=== PATIENT | female | born 2005 | race Caucasian/White ===

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

== ENCOUNTER 2024-01-05 22:35 | Observation (INO) ==
--- OUTSIDE RECORDS SUMMARY | 2024-01-05 22:40 | External Medical Summary | Summary of Care ---
Author Name Unknown Organization [facility] Address [address] [place] [address] Phone [phone] Care Team Providers Care J2Ee Engineer Name Role Phone Dasha Dinero MD Primary Care Provider + Reason for Visit * - Authorized Specialty Diagnoses / Procedures Referred By Juanjo andres Referred To Contact Referral ID Status Reason Start Date Expiration Date V isits Requested Visits Authorized [id number] Authorized 11/18/2023 11/16/2024 [id number] Encounter Details Date Type Department Care Team (Late st Contact Info) Description 12/05/2023 8:00 AM EDT Telemedicine Psychiatry [facility] [address] [place] [address] Lisa Whitt MD [address] [place] [address] Intermittent explosive disorder in adult*; Autism spectrum disorder Allergies Active Allergy Reactions Criticality Noted Date Comments Pollen 01/23/2022 Reported by mom documented as of this encounter (statuses as of 12/05/2023) Medications Medication Sig Dispensed Refills Start Date End Date Status Levonorgestrel-Eth inyl Estrad 0.1-20 MG-MCG Oral Tablet Take 1 Tablet by mouth in the morning. Active metFORMIN HCl 500 MG Oral Tablet (Glucophage)Indica tions:terminal block assembler current use of antipsychotic medication TAKE 1 TABLET BY MOUTH TWICE DAILY WITH MORNING AND EVENING MEALS 180 Tablet 4 Active clonazePAM 0.5 MG Oral Tablet (KlonoPIN)Indicati ons:TRISTA (generalized anxiety disorder) Take 1 Tablet by mouth in the morning and 1 Tablet before bedtime. 60 Tablet 1 4 Active busPIRone HCl 10 MG Oral Tablet (Buspar)Indication s:TRISTA (generalized anxiety disorder) Take 1 Tablet by mouth in the morning and 1 Tablet at noon and 1 Tablet before bedtime. 90 Tablet 1 4 Active risperiDONE 0.5 MG Oral Tablet (RisperDAL)Indicat ions:Autism spectrum disorder Take 1 Tablet by mouth at bedtime. 4 Active Sertraline HCl 50 MG Oral Tablet (Zoloft)Indication s:Intermittent explosive disorder in adult Take 1 Tablet by mouth in the morning. In the morning.. 30 Tablet 2 4 Active lamoTRIgine 100 MG Oral Tablet (LaMICtal) Take 1 Tablet by mouth daily for 14 days, THEN 1.5 Tablets daily for 14 days. 35 Tablet 4 01/02/20 24 Active Melatonin 5 MG Tablet Take 1 Capsule by mouth at bedtime. 12/05/19 24 Discontinued hydrOXYzine Pamoate 25 MG Oral Capsule (Vistaril) TAKE 1 CAPSULE BY MOUTH THREE TIMES DAILY EVERY MORNING, AT NOON, AND BEFORE BEDTIME 270 Capsule 3 12/05/19 24 Discontinued risperiDONE 0.5 MG Oral Tablet (RisperDAL)Indicat ions:Autism spectrum disorder Take 1 Tablet by mouth every afternoon AND 1 Tablet at bedtime. 60 Tablet 1 4 12/05/19 24 Discontinued Sertraline HCl 50 MG Oral Tablet (Zoloft)Indication s:TRISTA (generalized anxiety disorder) Take 1 Tablet by mouth in the morning. In the morning.. 30 Tablet 2 4 12/05/19 24 Discontinued(Ref ill) lamoTRIgine 25 MG Oral Tablet (LaMICtal)Indicati ons:Intermittent explosive disorder Take 3 Tablets by mouth in the morning. 4 12/05/19 24 Discontinued cloNIDine HCl 0.1 MG Oral Tablet (Catapres) Take 1 Tablet by mouth in the morning and 1 Tablet before bedtime. 12/05/19 24 Discontinued documented as of this encounter (statuses as of 12/05/2023) Active Problems Problem Noted Date Diagnosed Date Mild intellectual disability 12/09/2019 Autism spectrum disorder 11/19/2017 Intermittent explosive disorder 11/19/2017 Otitis media Dysfunction of eustachian tube Hearing loss documented as of this encounter (statuses as of 12/05/2023) Resolved Problems Problem Noted Date Diagnosed Date Resolved Date Otitis media 04/16/2007 Dysfunction of eustachian tube 06/24/2008 Overview: Resolved per Duplicate Protocol #2. documented as of this encounter (statuses as of 12/05/2023) Social History Tobacco Use Types Packs/Day Years [...] money to get more. Never true 04/23/2023 Childcare Answer Date Recorded Do you feel overwhelmed with taking care of a child, family member or friend? No 04/23/2023 Does your family need help f inding childcare? (Household - for ages 0-17 years) Not on file 04/23/2023 Clothing Answer Date Recorded Have you been unable to get clothing when it was really needed? No 04/23/2023 Is your family able to get c lothes or diapers when needed? (Household - for ages 0-17 years) Not on file 04/23/2023 Personal Safety Answer Date Recorded Do you feel unsafe or have concerns for your saf ety? No 04/23/2023 Do you have concerns for you r family's safety? (Household - for ages 0-17 years) Not on file 04/23/2023 Utilities Answer Date Recorded Do you have trouble paying y our heating, water, or electric bill? No 04/23/2023 Is your family able to pay t he heat, water, or electric bill? (Household - for ages 0-17 years) Not on file 04/23/2023 Does your family have access to good internet? (Household - for ages 0-17 years) Not on file 04/23/2023 Employment Status Answer Date Recorded Are you unemployed or without regular income? No 04/23/2023 Does the household have a re gular source of income? (Household - for ages 0-17 years) Not on file 04/23/2023 Social Connections Answer Date Recorded How often do you feel lonely or isolated from th ose around you? Often 04/23/2023 Financial Resource Strain Answer Date R ecorded Do you have any trouble payi ng for your medications, or do you think you might in the future? No 04/23/2023 Does your family have troubl e paying for medicine? (Household - for ages 0-17 years) Not on file 04/23/2023 Transportation Needs Answer Date Record ed READ ONLY Do you have troubl e getting a ride to medical visits or work? Never True 04/23/2023 Does your family have a hard time getting a ride to doctors visits? (Household - for ages 0-17 years) Not on file 04/23/2023 Has lack of transportation k ept you from medical appointments, meetings, work, or from getting things needed for daily living? Check all that apply. (Adult - for ages 18 years and over) Not on file 04/23/2023 Do you (or your family) have trouble finding or paying for a ride (transportation)? (Household - for ages 0-17 years) Not on file 04/23/2023 Housing Stability Answer Date Recorded Do you currently live in a s helter or have no steady place to sleep at night? No 04/23/2023 READ ONLY Do you think you a re at risk of becoming homeless? No 04/23/2023 Does your family worry about paying for your home or becoming homeless? (Household - for ages 0-17 years) Not on file 1 06/24/2022 Are you homeless or worried that you might be in the future? (Adult - for ages 18 years and over) Not on file Are you (or your family) art eless or worried that you might be in the future? (Household - for ages 0-17 years) Not on file Food Insecurity Answer Date Recorded Do you need food for this week? No 04/23/2023 Are you able to get enough f ood for your family? (Household - for ages 0-17 years) Not on file 04/23/2023 Does your family need food t his week? (Household - for ages 0-17 years) Not on file 04/23/2023 Do you always have enough fo od for your family? (Household - for ages 0-17 years) Not on file 04/23/2023 Sex and Gender Information Value Date Recorded Sex Assigned at Female 04/23/2023 1:11 PM EST Gender Identity Female 04/23/2023 1:11 PM EST Sexual Orientation Choose not to disclose 2022 1:11 PM EST Job Start Date Occupation Industry Not on file Not on file Not on file documented as of this encounter Patient Instructions * Patient Instructions* Lisa Whitt MD - 12/05/2023 9:02 AM EDT Isabell August it was a pleasure to see you today. Prior to your next appointment: I recommend reading as much as you can about your psychiatric illness. I find that this website is a good place to start: [email or web address]. Make a list of questions as you go along, and we can go over them at your next appointment. Please read all of the attachments about your medication, and take your medication as prescribed. If you are very sensitive to medications, it can be helpful to keep a daily log of how you are feeling both physically and mentally so we can review it and look for patterns at our next visit together. For appointment scheduling, medication refills or prior-authorization requests, please call the [facility] Psychiatry office at [phone]. Please note that to best serve all of our patients, any patient missing 4 appointments within a 12 month period will be discharged from the clinic. Please log in to the visit 15 minutes prior to yourscheduled appointment time. Patients who present more than 10 minutes late to an appointment will be asked to reschedule. If you are in a crisis, you can call the crisis intervention hotline (TAPLINE) , or call 911 or present to the nearest emergency room. documented in this encounter Progress Notes * Lisa Whitt MD - 12/05/2023 8:00 AM EDT OUTPATIENT BEHAVIORAL HEALTH FOLLOW UP Patient location: HOME. I was not in a hospital or clinic location. After connecting through televideo, patient was verified with two unique identifiers. Patient (or authorized legal medical billing representative) was then informed that this was a Telemedicine visit and being conducted confidentially over secure lines. Methods to assure confidentiality were taken. Patient acknowledged consent and understanding of privacy and security of the Telemedicine visit. The patient agreed to participate. Risk Assessment: Subjective: Previously treated in this clinic by Erna Burris. Diagnosis of ASD. TRISTA, hx of intermittent explosive disorder, mild intellectual disability. Last seen 09/25/23. Participating in Psych Rehab. Psychiatric history notable for treatment since teenage years for emotion dysregulation, behavioral issues, sleep disruption. Psychiatric admission June 2023 for an attempt to run into traffic, and two prior hospitalizations in 2022. Hx of NSSI (hitting self, stab self with pencil) Hx of overdose attempt on benadryl, jumping out a window. History of chronic passive and active SI. History of suicidalstatements in the context of low distress tolerance, without intent. No hx of substance use. No legal or trauma hx. No known contributing family hx. Medication at last visit was klonopin 0.5mg BID, Risperidone 0.5mg BID (plan to taper or switch to rexulti), hydroxyzine 25mg PRN, buspar 10mg TID, melatonin 10mg hs, zoloft 50mg daily, lamictal 75mg daily. Labs were ordered. 23 y.o. female presents with h/o multiple psychiatric hospitalizations this year for suicidal ideation and "meltdowns". Most recent hospitalization in October after running away from social event and standing in road hoping to be hit by car. She says she became upset when someone she liked was talkingto another girl. She says She ran off from the social event and taken in an ambulance to the [facility]; "I was laying on the ground so people would think I was and would be worried about me, I wanted them to feel bad for me" and denies any desire to end life during this episode. Due to this behavior she was taken in ambulance to the hospital and admitted to the [facility]. Denies current SI but endorses ongoing struggles with rejection sensitivity, low self-esteem, and emotional dysregulation. Reports feeling "really lonely" and that "guys don't pay attention to me". Went to camp last week but had a "meltdown". Fixated on weight and appearance. Denies changes to SocHx. Lives with parents. Attends psych rehab program weekly and sees therapist at [place]. Reports missing last week's session due to camp. Going to camp, spending time with family. Graduated HS. "Not sure about goals" would like to "be a dumont, or dance". Lives with parents. Goes to Psych rehab in [place] ; every Saturday 8am-3pm.Seeing a therapist at [place]-says this is a good relationship. Weight 145 in 2021, now 181 No questionnaires available. Prior Medication Trials: Abilify- weight gain (50lb) Guanfacine Vyvanse- irritability Adderall XR- weight loss Metadate- emotional crying Focalin- low dose- not effective Zoloft: reduced intermittent explosive behaviors Klonopin: 0.5mg BID , started during a hospitalization Risperdal: started during a psychiatric hospitalization . Had been up to 1mg 4pm and 0.5mg hs Buspar 10mg: had been 15mg TID. Had been tapering off of this but she started having more problems so it was restarted Lamotrigine: started during a hospital stay; family reports this did decrease frequency of 'violenteruptions' Clonidine: started October 2023 during a hospitalization, unsure if helpful as patient did have several explosive episodes subsequently Hydroxyzine: initially thought to be helpful as it appeared calming during explosive events, however possibly disinhibiting as administering this during an outburst did not prevent a need fo rhospitalization Medical History: I have reviewed the patient's allergies, past medical/surgical history, and current medications. Recent labs/imaging: Relevant labs reviewed er Dr. Gerald Ryan, asphalt tamper regarding MRI performed on 05-01-23: Cardiac MRI does not show signs of dilated cardiomyopathy. 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 This is calculated about 40% (normal 50-74%). 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 Since she has no symptoms at this point, these findings need to be monitored periodically. I would recommend follow up with adult cardiology in 1 year for repeat evaluation. Mental Status Evaluation: Appearance: Well groomed, casually dressed, appearing stated age Abnormal Movement: No abnormal movements noted Behavior: Calm, cooperative and appropriate. Poor eye contact Speech and Language: Normal in rate, rhythm, volume and tone Mood: Euthymic Affect: Appropriate to content and mood-congruent Thought Process: Logical, linear and goal directed Thought Content: No abnormal thought content Hallucinations: No perceptual disturbances Suicidality: No suicidal ideations, intent, method or plan or passive wish Homicidality: No homicidal ideations, intent, plan or target Orientation: Oriented to self, time, place and circumstances Attention: Intact Recent and Remote memory:Intact Insight: fair Judgement: fair Fund of Knowledge: Good Assessment/Formulation: 18 y.o. female with Diagnosis of ASD. TRISTA, hx of intermittent explosive disorder, mild intellectualdisability. presenting with ongoing mood lability, rejection sensitivity, and self-esteem issues leading to multiple psychiatric hospitalizations in the past year for statements of SI and emotional outbursts. Currently not endorsing acute SI/HI or psychosis. Struggling with weight gain on current meds. Medication adjustments warranted to optimize mood stability while minimizing side effects. Psychiatric history notable for treatment since teenage years for emotion dysregulation, behavioral issues, sleep disruption. Psychiatric admission June 2023 for an attempt to run into traffic, and two prior hospitalizations in 2022. Hx of NSSI (hitting self, stab self with pencil) Hx of overdose attempt on benadryl, jumping out a window. History of chronic passive and active SI. History of suicidal statements in the context of low distress tolerance, without intent. No hx of substance use. No legal or trauma hx. No known contributing family hx. Diagnosis: ICD-10-CM 1. Autism spectrum disorder F84.0 2. TRISTA (generalized anxiety disorder) F41.1 Plan: Plan: 1. Medications - Discontinue clonidine (limited benefit, possible worsening of outbursts). We may reconsider in the future but have discussed family and patient goal of reducing polypharmacy - Decrease risperidone to 0.5mg HS (continue 0.5mg PRN for severe agitation) - Increase lamotrigine to 100mg x2 weeks, then 150mg x2 weeks (goal 200-400mg) - Continue current doses of sertraline and buspirone with plan to consolidate to monotherapy in future - Continue clonazepam 0.5mg BID. We may also revisit tapering this in the future once lamotrigine dose is optimized, as this may be disinhibiting - Continue metformin and OCP 2. Therapy - Encourage regular attendance at weekly psych rehab program - Follow up with therapist at [facility] 3. Community resources - Explore local peer support groups and social activities 4. Lab tests: - Check HbA1c and lipids - Consider checking lamotrigine level once on a therapeutic dose 5. "Safety plan: Benigno rivas safety plan attached" 6. Return in: 2 weeks for med check and re-evaluation. Call sooner if worsening in mood or self-harm urges. Information about current meds reviewed/provided /offered. Provider reviewed risks/benefits/side effects and potential complications. Recommended to not change meds/dosage without medical advise.Treatment options and recommendations/interventions reviewed. Patient and/or caregiver verbalize understanding and agrees to plan with explanation of risks/benefits, aware of how to contact clinic with questions. Time Spent on Visit: 30 minutes Please note >17 minutes of counseling time over and above medication management was spent with patient discussing safety and contingency plan . Lisa Whitt MD Adult Psychiatrist [facility] [phone] 12/04/23 documented in this encounter Plan of Treatment Upcoming Encounters Date Type Department Care Team (Late st Contact Info) Description 12/26/2023 1:00 PM EDT Telemedicine Psychiatry [facility] [address] [place] [place] [address] Lisa Whitt MD [address] [facility] [place] [address] Health Maintenance Due Date Last Done Comments Yearly Wellness Visit 2008 Depression Screening 2016 Gonorrhea / Chlamydia Screen 2019 HIV Screening 2019 Hepatitis C Screening 2022 COVID-19 Vaccine ( season) 2023 Influenza Vaccine (FLU shot) (#1) 2024 03/03/2018, 05/28/2014, 04/26/2005 DTaP,Tdap,and Td Vaccines (7 - Td or Tdap) 08/17/2025 08/18/2015, 12/09/2008, 10/02/2005, Additional history exists Hepatitis B Vaccine Completed 04/26/2005, 2004, 2004 HPV (Gardasil) Vaccine Completed 03/03/2018, 2015 MENINGOCOCCAL (MENACTRA/MENVEO) Aged Out No longer eligible based on patient's age to complete this topic Pneumococcal Vaccine: Pediatrics (0 to 5 Years) and At-Risk Patients (6 to 64 Years) Aged Out No longer eligible based on patient's age to complete this topic documented as of this encounter Medical Devices Not on filedocumented as of this encounter Visit Diagnoses Diagnosis Intermittent explosive disorder in adult- Primary Autism spectrum disorder Autistic disorder, current or active state documented in this encounter Care Teams J2Ee Engineer Relationship Specialty Start Date End Date Dasha Dinero MD [address] [address] PCP - General Pediatrics 02/20/17 documented as of this encounter
--- OUTSIDE RECORDS SUMMARY | 2024-01-05 22:40 | External Medical Summary | Summary of Care ---
Author Name Unknown Organization [facility] Address [address] [place] [place] [address] Phone [phone] Care Team Providers Care Mailing Clerk Name Role Phone Dsaha Dinero MD Primary Care Provider + Reason for Visit * Reason Onset Date Comments Med Request 12/06/2023 Encounter Details Date Type Department Care Team (Late st Contact Info) Description 12/06/2023 Telephone Access Center, [place] [address] [facility] *DO NOT REMOVE THIS DEPARTMENT* [place] [address] Services, Scheduling [address] [facility] [place] [place] [address] Med Request Allergies Active Allergy Reactions Criticality Noted Date Comments Pollen 01/23/2022 Reported by mom documented as of this encounter (statuses as of 12/06/2023) Medications Medication Sig Dispensed Refills Start Date End Date Status Levonorgestrel-Ethi nyl Estrad 0.1-20 MG-MCG Oral Tablet Take 1 Tablet by mouth in the morning. Active metFORMIN HCl 500 MG Oral Tablet (Glucophage)Indicat ions:[facility] current use of antipsychotic medication TAKE 1 TABLET BY MOUTH TWICE DAILY WITH MORNING AND EVENING MEALS 180 Tablet 05/28/2023 Active busPIRone HCl 10 MG Oral Tablet (Buspar)Indications :TRISTA (generalized anxiety disorder) Take 1 Tablet by mouth in the morning and 1 Tablet at noon and 1 Tablet before bedtime. 90 Tablet 1 10/24/2023 Active risperiDONE 0.5 MG Oral Tablet (RisperDAL)Indicati ons:Autism spectrum disorder Take 1 Tablet by mouth at bedtime. 12/05/2023 Active Sertraline HCl 50 MG Oral Tablet (Zoloft)Indications :Intermittent explosive disorder in adult Take 1 Tablet by mouth in the morning. In the morning.. 30 Tablet 2 12/05/2023 Active lamoTRIgine 100 MG Oral Tablet (LaMICtal) Take 1 Tablet by mouth daily for 14 days, THEN 1.5 Tablets daily for 14 days. 35 Tablet 12/05/2023 01/02/2024 Active clonazePAM 0.5 MG Oral Tablet (KlonoPIN)Indicatio ns:TRISTA (generalized anxiety disorder) Take 1 Tablet by mouth in the morning and 1 Tablet before bedtime. 60 Tablet 1 12/06/2023 Active clonazePAM 0.5 MG Oral Tablet (KlonoPIN)Indicatio ns:TRISTA (generalized anxiety disorder) Take 1 Tablet by mouth in the morning and 1 Tablet before bedtime. 60 Tablet 1 08/28/2023 12/06/2023 Discontinue d(Refill) documented as of this encounter (statuses as of 12/06/2023) Active Problems Problem Noted Date Diagnosed Date Mild intellectual disability 12/09/2019 Autism spectrum disorder 11/19/2017 Intermittent explosive disorder 11/19/2017 Otitis media Dysfunction of eustachian tube Hearing loss documented as of this encounter (statuses as of 12/06/2023) Resolved Problems Problem Noted Date Diagnosed Date Resolved Date Otitis media 04/16/2007 Dysfunction of eustachian tube 06/24/2008 Overview: Resolved per Duplicate Protocol #2. documented as of this encounter (statuses as of 12/06/2023) Social History Tobacco Use Types Packs/Day Years [...] No 04/23/2023 Does the household have a [facility] source of income? (Household - for ages [...] encounter Miscellaneous Notes * Telephone Encounter - Emma Mukherjee OSA - 12/06/2023 12:43 PM EDT Patient Requesting Refill Prescribing Provider: Jose Eduardo Medication:clonazePAM 0.5 MG Pharmacy:[facility] Last Visit Date:12/05/23 Future Visit Date:12/26/23 Pt is out of her medication. Mom forgot to get a refill yesterday when she had the appointment. documented in this encounter Plan of Treatment Upcoming Encounters Date Type Department Care Team (Late st Contact Info) Description 12/26/2023 1:00 PM EDT Telemedicine Psychiatry [facility] [address] [place] [address] Lisa Whitt MD [address] [facility] [place] [address] Health Maintenance Due [...] disorder documented in this encounter Care Teams Mailing Clerk Relationship Specialty Start Date End Date Dasha Dinero MD [address] [address] PCP - General Pediatrics 02/20/17 documented as of this encounter
--- OUTSIDE RECORDS SUMMARY | 2024-01-05 22:40 | External Medical Summary | Summary of Care ---
Author Name Unknown Organization [facility] Address [address] [place] [facility] [place] [place] [address] Phone [phone] Care Team Providers Care Nursing Unit Manager Name Role Phone Dasha Dinero MD Primary Care Provider + Reason for Visit * Reason Onset Date Comments Med Request 12/06/2023 Encounter Details Date Type Department Care Team (Late st Contact Info) Description 12/06/2023 Telephone Access Center, [place] [address] [facility] *DO NOT REMOVE THIS DEPARTMENT* [place] [address] Services, Scheduling [address] [facility] [place] [address] Med Request Allergies Active Allergy Reactions Criticality Noted Date Comments Pollen 01/23/2022 Reported by mom documented as of this encounter (statuses as of 12/09/2023) Medications Medication Sig Dispensed Refills Start Date End Date Status Levonorgestrel-Ethi nyl Estrad 0.1-20 MG-MCG Oral Tablet Take 1 Tablet by mouth in the morning. 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 documented as of this encounter (statuses as of 12/09/2023) Social History Tobacco Use Types Packs/Day Years [...] No 04/23/2023 Does the household have a [facility] source of income? (Household - for ages [...] encounter Miscellaneous Notes * Telephone Encounter - Edith Rossi OSA - 12/09/2023 4:23 PM EDT Patients mom calling back in and Sara has not received the prescription. Can we please have this resent phyllis * Telephone Encounter - Emma Mukherjee OSA - 12/06/2023 12:43 PM EDT Patient Requesting Refill Prescribing Provider: Jose Eduardo Medication:clonazePAM 0.5 MG Pharmacy:[facility] Last Visit Date:12/05/23 Future Visit Date:12/26/23 Pt is out of her medication. Mom forgot to get a refill yesterday when she had the appointment. documented in this encounter Plan of Treatment Upcoming Encounters Date Type Department Care Team (Late st Contact Info) Description 12/26/2023 1:00 PM EDT Telemedicine Psychiatry Shakir [facility]ote [address] [place] [address] Lisa Whitt MD [address] [facility] [place] [address] Health Maintenance Due Date Last Done [...] disorder documented in this encounter Care Teams Nursing Unit Manager Relationship Specialty Start Date End Date Dasha Dinero MD [address] [address] PCP - General Pediatrics 02/20/17 documented as of this encounter
--- OUTSIDE RECORDS SUMMARY | 2024-01-05 22:40 | External Medical Summary | Summary of Care ---
Author Name Unknown Organization [facility] Address [address] [facility] [place] [address] Phone [phone] Care Team Providers Care Teacher Preschool Name Role Phone Dasha Dinero MD Primary Care Provider + Reason for Visit * Reason Onset Date Comments Med Request 12/06/2023 Encounter Details Date Type Department Care Team (Late st Contact Info) Description 12/06/2023 Telephone Access Center, [place] [address] [facility] *DO NOT REMOVE THIS DEPARTMENT* [place] [address] Services, Scheduling [address] [facility] [place] [address] Med Request Allergies Active Allergy Reactions Criticality Noted Date Comments Pollen 01/23/2022 Reported by mom documented as of this encounter (statuses as of 12/10/2023) Medications Medication Sig Dispensed Refills Start Date End Date Status Levonorgestrel-Ethi nyl Estrad 0.1-20 MG-MCG Oral Tablet Take 1 Tablet by mouth in the morning. Active metFORMIN HCl 500 MG Oral Tablet (Glucophage)Indicat ions:FPC current use of antipsychotic medication TAKE 1 [...] 1 Tablet before bedtime. 60 Tablet 1 12/10/2023 Active clonazePAM 0.5 MG Oral Tablet (KlonoPIN)Indicatio ns:TRISTA (generalized anxiety disorder) Take 1 Tablet by mouth in the morning and 1 Tablet before bedtime. 60 Tablet 1 08/28/2023 12/06/2023 Discontinue d(Refill) clonazePAM 0.5 MG Oral Tablet (KlonoPIN)Indicatio ns:TRISTA (generalized anxiety disorder) Take 1 Tablet by mouth in the morning and 1 Tablet before bedtime. 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 documented as of this encounter (statuses as of 12/10/2023) Social History Tobacco Use Types Packs/Day Years Used Date Smoking Tobacco: Never Smokeless Tobacco: Never Alcohol Use Standard Drinks/Week Comments No 0 (1 standard drink = 0.6 oz pur e alcohol) Hunger Vital Sign Answer Date Recorded Within the past 12 months, y ou worried that your food would run out before you got the money to buy more. Never true 04/23/20 Within the past 12 months, t he [...] No 04/23/2023 Does the [facility] a [facility] source [facility]? (Household - for ages [...] as of this encounter Miscellaneous Notes * Addendum Note - Lisa Whitt MD - 12/10/2023 8:01 AM EDTAddended by: LISA WHITT on: 12/10/2023 08:01 AM Modules accepted: Orders * Telephone Encounter - Edith Rossi OSA - 12/09/2023 4:23 PM EDT Patients mom calling back in and Sara has not received the prescription. Can we please have this resent phyllis * Telephone Encounter - Emma Mukherjee OSA - 12/06/2023 12:43 PM EDT Patient Requesting Refill Prescribing Provider: Jose Eduardo Medication:clonazePAM 0.5 MG Pharmacy:[facility] Last Visit Date:12/05/23 Future Visit Date:12/26/23 Pt is out of her medication. Mom forgot to get a refill yesterday when she had the appointment. documented in this encounter Plan of Treatment Upcoming Encounters Date Type Department Care Team (Late st Contact Info) Description 12/26/2023 1:00 PM EDT Telemedicine Psychiatry Shakir Cote [address] [place] [phone] Lisa Whitt MD [address] [place] [address] Health Maintenance Due Date Last Done [...] disorder documented in this encounter Care Teams Teacher Preschool Relationship Specialty Start Date End Date Dasha Dinero MD [address] [address] PCP - General Pediatrics 02/20/17 documented as of this encounter
--- OUTSIDE RECORDS SUMMARY | 2024-01-05 22:40 | External Medical Summary | Summary of Care ---
Author Name Unknown Organization [facility] Address [address] [place] [address] Phone [phone] Care Team Providers Care Floor Press Operator Name Role Phone Dasha Dinero MD Primary Care Provider + Reason for Visit * - Authorized Specialty Diagnoses / Procedures Referred By Juanjo andres Referred To Contact Referral ID Status Reason Start Date Expiration Date V isits Requested Visits Authorized [id number] Authorized 11/18/2023 11/16/2024 [id number] Encounter Details Date Type Department Care Team (Late st Contact Info) Description 12/26/2023 1:00 PM EDT [facility] [address] [place] [address] Lisa Whitt MD [address] [place] [address] No Show for psych appt* Allergies Active Allergy Reactions Criticality Noted Date Comments Pollen 01/23/2022 Reported by mom documented as of this encounter (statuses as of 12/26/2023) Medications Medication Sig Dispensed Refills Start Date End Date Status Levonorgestrel-Ethi nyl Estrad 0.1-20 MG-MCG Oral Tablet Take 1 Tablet by mouth in the morning. Active metFORMIN HCl 500 MG Oral Tablet (Glucophage)Indicat ions:terminal gauger supervisor current use of antipsychotic medication TAKE 1 TABLET BY MOUTH TWICE DAILY WITH MORNING AND EVENING MEALS 180 Tablet 05/28/2023 Active busPIRone HCl 10 MG Oral Tablet (Buspar)Indications :TRISTA (generalized anxiety disorder) Take 1 Tablet by mouth in the morning and 1 Tablet at noon and 1 Tablet before bedtime. 90 Tablet 1 10/24/2023 Active Sertraline HCl 50 MG Oral Tablet (Zoloft)Indications :Intermittent explosive disorder in adult Take 1 Tablet by mouth in the morning. In the morning.. 30 Tablet 2 12/05/2023 Active lamoTRIgine 100 MG Oral Tablet (LaMICtal) Take 1 Tablet by mouth daily for 14 days, THEN 1.5 Tablets daily for 14 days. 35 Tablet 12/05/2023 4 Active clonazePAM 0.5 MG Oral Tablet (KlonoPIN)Indicatio ns:TRISTA (generalized anxiety disorder) Take 1 Tablet by mouth in the morning and 1 Tablet before bedtime. 60 Tablet 1 12/12/2023 Active risperiDONE 0.5 MG Oral Tablet (RisperDAL)Indicati ons:Autism spectrum disorder Take 1 Tablet by mouth at bedtime. 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 documented as of this encounter (statuses as of 12/26/2023) Social History Tobacco Use Types Packs/Day Years [...] No 04/23/2023 Does the household have a [facility] source of income? (Household - for ages [...] as of this encounter Progress Notes * Lisa Whitt MD - 12/26/2023 1:12 PM EDT Patient failed to keep appointment. Called home; mom answered and stated patient was sleeping and not willing to participate in visit Mom reported pt has stopped risperidone and clonidine. Showing improvement in mood and emotion regulation. Has been sleeping often and has disrupted sleep cycle. Does sleep better on days attends psych rehab. No acute safety concerns. Our office will reach out to help them reschedule. Ideally 60 min appointment if this is available within next 3 weeks. documented in this encounter Plan of Treatment Upcoming Encounters Date Type Department Care Team (Late st Contact Info) Description 01/22/2024 2:30 PM EDT Telemedicine Psychiatry [facility] [address] [address] [phone] Lisa Whitt MD [address] [facility] [place] [address] Health Maintenance Due Date Last Done Comments [...] as of this encounter Visit Diagnoses Diagnosis No Show for psych appt- Primary documented in this encounter Care Teams Floor Press Operator Relationship Specialty Start Date End Date Dasha Dinero MD [address] [address] PCP - General Pediatrics 02/20/17 documented as of this encounter
--- OUTSIDE RECORDS SUMMARY | 2024-01-05 22:40 | External Medical Summary | Summary of Care ---
Author Name Unknown Organization [facility] Address [address] [place] [address] Phone [phone] Care Team Providers Care Nurse Discharge Name Role Phone Dasha Dinero MD Primary Care Provider + Reason for Visit * Reason Onset Date Comments Med Request 11/27/2023 Encounter Details Date Type Department Care Team (Late st Contact Info) Description 11/27/2023 Telephone Psychiatry, [place] [address] [place], [place] [id number] Services, [facility] [address] [place] [address] Med Request Allergies Active Allergy Reactions Criticality Noted Date Comments Pollen 01/23/2022 Reported by mom documented as of this encounter (statuses as of 11/28/2023) Medications Medication Sig Dispensed Refills Start Date [...] metFORMIN HCl 500 MG Oral Tablet (Glucophage)Indicati ons:FPC current use of antipsychotic medication TAKE 1 [...] before bedtime. 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 documented as of this encounter (statuses as of 11/28/2023) Social History Tobacco Use Types Packs/Day Years [...] 04/23/2023 Does the household have a [facility] source of income? (Household - for ages [...] encounter Miscellaneous Notes * Telephone Encounter - Lexi Fitzgerald OSA - 11/27/2023 1:43 PM EDT Patient Requesting Refill Prescribing Provider:Dr. Whitt Medication:Risperidone 0.5 mg. [facility]acy[facility] Last Visit Date:09/25/23 Future Visit Date:12/05/23 documented in this encounter Plan of Treatment Upcoming Encounters Date Type Department Care Team (Late st Contact Info) Description 12/05/2023 8:00 AM EDT Telemedicine Psychiatry Shakir [address] [address] Lisa Whitt MD [address] [place] [facility] [place] [address] Health Maintenance Due Date Last Done Comments Yearly Wellness Visit 2008 Depression Screening 2016 Gonorrhea / Chlamydia Screen 2019 HIV Screening 2019 Hepatitis C Screening 2022 COVID-19 Vaccine (2022-24 season) 2023 Influenza Vaccine (FLU shot) (#1) [...] filedocumented as of this encounter Care Teams Nurse Discharge Relationship Specialty Start Date End Date Dasha Dinero MD [address] [address] PCP - General Pediatrics 02/20/17 documented as of this encounter
--- OUTSIDE RECORDS SUMMARY | 2024-01-05 22:40 | External Medical Summary | Summary of Care ---
Author Name Unknown Organization [facility] Address [address] [place] [address] Phone [phone] Care Team Providers Care Instructor Flying Name Role Phone Dasha Dinero MD Primary Care Provider + Reason for Visit * Reason Onset Date Comments Medication Refill 12/30/2023 Encounter Details Date Type Department Care Team (Late st Contact Info) Description 12/30/2023 Refill Psychiatry [facility] [place] [address] [place] [address] Malou Whitt MD [address] [place] [address] TRISTA (generalized anxiety disorder) Allergies Active Allergy Reactions Criticality Noted Date Comments Pollen 01/23/2022 Reported by mom documented as of this encounter (statuses as of 12/31/2023) Medications Medication Sig Dispensed Refills Start Date End Date Status Levonorgestrel-Ethi nyl Estrad 0.1-20 MG-MCG Oral Tablet Take 1 Tablet by mouth in the morning. Active metFORMIN HCl 500 MG Oral Tablet (Glucophage)Indicat ions:buttermilk drier operator current use of antipsychotic medication TAKE 1 TABLET BY MOUTH TWICE DAILY WITH MORNING AND EVENING MEALS 180 Tablet 05/28/2023 Active Sertraline HCl 50 MG Oral Tablet (Zoloft)Indications :Intermittent explosive disorder in adult Take 1 Tablet by mouth in the morning. In the morning.. 30 Tablet 2 12/05/2023 Active clonazePAM 0.5 MG Oral Tablet (KlonoPIN)Indicatio ns:TRISTA (generalized anxiety disorder) Take 1 Tablet by mouth in the morning and 1 Tablet before bedtime. 60 Tablet 1 12/12/2023 Active busPIRone HCl 10 MG Oral Tablet (Buspar)Indications :TRISTA (generalized anxiety disorder) Take 1 Tablet by mouth in the morning and 1 Tablet at noon and 1 Tablet before bedtime. 90 Tablet 1 12/31/2023 Active lamoTRIgine 100 MG Oral Tablet (LaMICtal) Take 1.5 Tablets by mouth in the morning. 45 Tablet 1 12/31/2023 Active busPIRone HCl 10 MG Oral Tablet (Buspar)Indications :TRISTA (generalized anxiety disorder) Take 1 Tablet by mouth in the morning and 1 Tablet at noon and 1 Tablet before bedtime. 90 Tablet 1 10/24/2023 12/30/2023 Discontinue d(Refill) lamoTRIgine 100 MG Oral Tablet (LaMICtal) Take 1 Tablet by mouth daily for 14 days, THEN 1.5 Tablets daily for 14 days. 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 documented as of this encounter (statuses as of 12/31/2023) Social History Tobacco Use Types Packs/Day Years [...] No 04/23/2023 [facility] the [facility]? (Household - for ages [...] encounter Miscellaneous Notes * Telephone Encounter - Malou Whitt MD - 12/31/2023 2:52 PM EDTSigned Prescriptions: Disp Refills busPIRone HCl 10 MG Oral Tablet (Buspar) 90 Tab*1 Sig: Take 1 Tablet by mouth in the morning and 1 Tablet at noon and 1 Tablet before bedtime.Authorizing Provider: MALOU WHITT lamoTRIgine 100 MG Oral Tablet (LaMICtal) 45 Tab*1 Sig: Take 1.5 Tablets by mouth in the morning.Authorizing Provider: MALOU WHITT * Telephone Encounter - Mary Gan MD - 12/31/2023 10:34 AM EDT Pending Prescriptions: Disp Refills busPIRone HCl 10 MG Oral Tablet (Buspar) 90 Tab*1 Sig: Take 1 Tablet by mouth in the morning and 1 Tablet at noon and 1 Tablet before bedtime. lamoTRIgine 100 MG Oral Tablet (LaMICtal) 14 Tab*0 Sig: Take 1 Tablet by mouth in the morning for 14 days. * Telephone Encounter - Katrina Rodriguez LPN - 12/30/2023 1:46 PM EDT Pharmacy requesting refill on buspar. Medication was last filled on 10/24/23 with 1 refills. Patient last seen on 12/05/23 with return appointment scheduled for 01/22/24. Patient had 0 cancelled appointments and 1 NO SHOW appointments. documented in this encounter Plan of Treatment Upcoming Encounters Date Type Department Care Team (Late st Contact Info) Description 01/22/2024 2:30 PM EDT Telemedicine Psychiatry Shak[facility] [address] [address] Malou Whitt MD [address] [address] Health Maintenance Due Date Last Done Comments Yearly Wellness Visit 2008 Depression Screening 2016 Gonorrhea / Chlamydia Screen 2019 HIV Screening 2019 Hepatitis C Screening 2022 COVID-19 Vaccine ( - 2022-24 season) 2023 Influenza Vaccine (FLU shot) (#1) [...] disorder documented in this encounter Care Teams Instructor Flying Relationship Specialty Start Date End Date Dasha Dinero MD [address] [address] PCP - General Pediatrics 02/20/17 documented as of this encounter
--- NOTE | 2024-01-05 23:14 | Emergency Department Note ---
Impression & Plan Tylenol ingestion, Suicide attempt, Autism ED Provider Note CHIEF COMPLAINT: Suicide attempt, overdose HISTORY OF PRESENT ILLNESS: This is a 17-year-old female patient past medical history of autism spectrum disorder, intellectual disability, intermittent explosive disorder, obesity presents to the emergency department after a Tylenol ingestion tonight in an effort to kill herself. Patient states she took "a half a bottle" of pain reliever, which is confirmed by mom to be acetaminophen. It is unclear if this is regular strength or extra strength. An exact pill count is unknown as the bottle was open prior to her use. Patient denies any alcohol ingestion. Patient states she has nauseated but has not vomited. She mentions that she has attempted to overdose in the past but "God keeps me alive." She does feel quite frustrated by this. REVIEW OF SYSTEMS: A review of systems was performed with positives and pertinent negatives listed in the history of present illness. 10 systems were reviewed and are otherwise negative. ALLERGIES: see below MEDICATIONS: see below PMH: see below SOCIAL HISTORY: see below DDx: Suicidal ideation, medication ingestion, toxicologic effect, mood disorder, situational stressors, behavioral issue among others. PHYSICAL EXAM: Vital signs reviewed. General: Anxious, tearful 18-year-old female, in no distress. HEENT: No scleral icterus, PERRLA, neck supple. Moist mucous membranes. Cardiovascular: Regular rate and rhythm, no extra sounds. Pulmonary: Clear to auscultation bilaterally, normal work of breathing. Abdomen: Soft, nontender, nondistended, positive bowel sounds. Musculoskeletal: Atraumatic, no peripheral edema. Neurologic: Patient awake alert and oriented x 3, speech is clear Psych: Positive SI, negative HI. Skin: Warm, dry, no rash EMERGENCY DEPARTMENT COURSE/MDM: This patient was evaluated and appeared to be in no significant distress. Patient had 2-3 aggressive outbursts while she was being evaluated by myself and the nursing staff. Patient's medical records were reviewed and it appears that the patient was hospitalized for inpatient psychiatric care in October of this year. She had attempted an overdose at that time as well. Patient did receive 1 L of normal saline solution, but did self discontinue her saline lock in an agitated state. She initially received 0.5 mg of sublingual ativan with brief improvement. Patient then became quite agitated once again. She was given 5 mg of Zyprexa ODT. Laboratory work reveals a 1 hour acetaminophen of 267. If the patient's timing is accurate, this would be a toxic level. Poison control was consulted and has recommended initiation of IV Acetadote. Patient's liver enzymes have remained normal. Her 4-hour acetaminophen level is 439. Patient's case was discussed with Dr. Urias of the hospitalist service to evaluate the patient for admission and further management. Patient is hospitalized on a 302 which has been completed by the delegate. Patient is aware of the plan and agrees. MONITORING: An order for cardiac monitoring was placed and the patient is noted to be in a sinus tachycardia at 101 beats per minute. EKG: To my interpretation reveals a sinus tachycardia at [address] segments. QTc of 450. No PVC, no PAC. DISPOSITION: Admission I have personally spent greater than 50 minutes of critical care time in the direct management of this patient. This includes bedside care, interpretation of diagnostic studies, and testing, discussion with consultants, patient, and family members, and other required patient management activities. This 50 minutes is in excess of all separately billable procedures. Past Med/Surg History Problem List (Updated 01/06/24 @ 12:10 by Mary Talbert MD) Bradycardia Autism (Acute) Suicide attempt (Acute) Intentional overdose Tylenol ingestion (Acute) Obesity (BMI 30-39.9) Intermittent explosive disorder Mood disorder (Acute) Autism spectrum disorder (Acute) ADHD Intellectual disability (Acute) LMNA gene mutation (Acute) Medical History Depression with suicidal ideation Suicide attempt by multiple drug overdose Overdose Suicidal ideation Encounter for prescription of oral contraceptives Depression with suicidal ideation Suicidal behavior with attempted self-injury Diphenhydramine overdose Surgical History No history of previous surgery Family History Unknown Adopted Social History Smoking Status: Never smoker Second Hand Exposure: No; Do You Dip or Chew Tobacco: No; Tobacco Cessation Education Requested by Patient: No Hx Alcohol Use: No Hx Substance Use: No Preferred Language: Frisian Communication Ability: Effective Die Lay Out Worker Required: No Beliefs That Will Affect Care: None Current Living Situation: Family Current Living Situation Comment: Adopted/ parents/ older adopted sister Other Information That Helps Us Care for You: No other: adopted Feels Safe at Home: Yes Safety Concerns: Feels Safe At This Time Childhood Exposure to Second-Hand Smoke: No Gender Identity: Female Assistive Devices: None Allergies Allergies Allergy/AdvReac Type Severity Reaction Status Date / Time No Known Drug Allergies Allergy . Verified 01/06/24 01:04 Home Meds Home Medications Medication Instructions Recorded Confirmed clonazepam 0.5 mg tablet (Klonopin) 0.5 mg PO BID 07/06/23 01/06/24 sertraline 50 mg tablet (Zoloft) 50 mg PO DAILY 07/06/23 01/06/24 lamotrigine 25 mg tablet (Lamictal) 150 mg PO QAM 09/12/23 01/06/24 buspirone 10 mg tablet 10 mg PO TID 10/28/23 01/06/24 buspirone 10 mg tablet 10 mg PO 3XD 01/06/24 01/06/24 levonorgestrel-ethinyl estradiol 1 tab QPM 01/06/24 01/06/24 0.1 mg-20 mcg tablet (Vienva) risperidone 0.5 mg tablet 0.5 mg PO 2XD 01/06/24 01/06/24 Results & Data (ED) Vital Signs Vital Signs - 24 hr 01/06/24 00:21 01/06/24 00:25 01/06/24 00:25 Pulse Rate 102 H Pulse Rate [Right Finger] 96 H Pulse Rate from SpO2 Sensor 100 H Pulse Rhythm [Right Finger] Regular Respiratory Rate 21 16 Blood Pressure 126/95 Blood Pressure [Left Arm] 126/95 Blood Pressure Mean 114 Blood Pressure Mean [Left Arm] 105 Pulse Oximetry 93 96 Oxygen Delivery Method Room Air 01/06/24 00:25 01/06/24 00:25 01/06/24 00:33 Pulse Rate 92 H Pulse Rate [Right Finger] Pulse Rate from SpO2 Sensor 91 H Pulse Rhythm [Right Finger] Respiratory Rate 21 Blood Pressure 126/95 126/95 Blood Pressure [Left Arm] Blood Pressure Mean 114 114 Blood Pressure Mean [Left Arm] Pulse Oximetry 100 Oxygen Delivery Method 01/06/24 00:36 01/06/24 01:00 01/06/24 01:00 Pulse Rate 105 H Pulse Rate [Right Finger] Pulse Rate from SpO2 Sensor 97 H Pulse Rhythm [Right Finger] Respiratory Rate 19 Blood Pressure 139/94 139/94 Blood Pressure [Left Arm] Blood Pressure Mean 99 99 Blood Pressure Mean [Left Arm] Pulse Oximetry 97 Oxygen Delivery Method 01/06/24 01:12 01/06/24 01:30 Pulse Rate 98 H 92 H Pulse Rate [Right Finger] Pulse Rate from SpO2 Sensor 97 H 93 H Pulse Rhythm [Right Finger] Respiratory Rate 22 22 Blood Pressure Blood Pressure [Left Arm] Blood Pressure Mean Blood Pressure Mean [Left Arm] Pulse Oximetry 90 89 L Oxygen Delivery Method Home Medications Current Medication List: was personally reviewed by me Laboratory Data Attestation: I reviewed the patient's lab results. 01/06/24 02:37 01/06/24 20:15 Lab Results 01/05/24 01/05/24 Range/Units 23:05 23:24 WBC 14.48 H (4.8-10.8) K/ul RBC 4.34 (4.20-5.40) M/uL Hgb 12.2 (12.0-16.0) g/dl Hct 38.0 (37.0-47.0) % MCV 87.6 (80.0-100.0) fL MCH 28.1 (25.0-34.0) pg MCHC 32.1 (32.0-36.0) g/dL RDW Std Deviation 39.2 (36.4-46.3) fL RDW Coeff of Tari 12.2 (11.5-14.5) % Plt Count 337 (130-400) K/uL MPV 10.3 (9.4-12.4) fL Immature Gran % (Auto) 0.5 % Neut % (Auto) 58.7 % Lymph % (Auto) 32.2 % [place] % (Auto) 5.9 % Eos % (Auto) 2.1 % Baso % (Auto) 0.6 % Neut # (Auto) 8.50 H (1.40-6.50) K/uL Lymph # (Auto) 4.66 H (1.20-3.40) K/uL [place] # (Auto) 0.85 H (0.11-0.59) K/uL Eos # (Auto) 0.31 (0.00-0.50) K/uL Baso # (Auto) 0.09 (0.00-0.20) K/uL Immature Gran # (Auto) 0.07 (0.01-0.20) K/uL PT 10.1 (9.0-12.0) Seconds INR 0.9 (0.9-1.1) APTT 26 (21-31) Seconds PTT Ratio 1.0 Sodium 137 (136-145) mmol/L Potassium 3.8 (3.5-5.1) mmol/L Chloride 104 (98-107) mmol/L Carbon Dioxide 23 (21-32) mmol/L Anion Gap 10 (3-11) BUN 14 (6-23) mg/dl Creatinine 0.62 (0.6-1.2) mg/dl Est Cr Clr Drug Dosing Not Reportable Est GFR ( Amer) > 150.0 ml/min Est GFR (Non-Af Amer) 130.7 ml/min BUN/Creatinine Ratio 22.6 H (10-20) Glucose 110 H (70-99(Fasting)) mg/dl Calcium 9.6 (8.6-10.3) mg/dl Total Bilirubin 0.2 (0.2-1.0) mg/dl AST 15 (13-39) U/L ALT 17 (7-52) U/L Alkaline Phosphatase 101 (34-104) U/L Total Protein 7.0 (6.0-8.3) gm/dl Albumin 4.3 (3.4-5.0) gm/dl Globulin 2.7 (2.5-4.0) gm/dl Albumin/Globulin Ratio 1.6 (0.9-2) TSH 2.211 (0.300-4.500) uIu/ml Urine Color Yellow Urine Appearance Clear (Clear) Urine pH 5.0 (4.5-7.5) Ur Specific [place] 1.042 H (1.000-1.030) Urine Protein Trace H (Negative) Urine Glucose (UA) Negative (Negative) Urine Ketones Negative (Negative) Urine Blood Negative (Negative) Urine Nitrite Negative (Negative) Urine Bilirubin Negative (Negative) Urine Urobilinogen Negative (Negative) Ur Leukocyte Esterase Negative (Negative) Urine WBC (Auto) 0-5 (0-5) /hpf Urine RBC (Auto) 0-2 (0-2) /hpf U Hyaline Cast (Auto) 0-2 (0-2) /lpf U Epithel Cells (Auto) 3-5 H (0-2) /hpf Urine Bacteria (Auto) 2+ H (None Seen) Salicylates < 3.0 L (3.0-30) mg/dl Urine Opiates Screen Neg (Neg) Ur Methadone, Qual Neg (Neg) Urine Fentanyl Screen Neg (Neg) Acetaminophen 267 H* (10-30) ug/ml Urine Barbiturates Neg (Neg) Ur Phencyclidine (PCP) Neg (Neg) U Amphetamin/Meth Scrn Neg (Neg) MDMA (Ecstasy) Screen Neg (Neg) U Benzodiazepines Scrn Neg (Neg) Ur Cocaine Metabolite Neg (Neg) U Marijuana (THC) Screen Neg (Neg) Ethyl Alcohol mg/dL < 10.0 (<10.0) mg/dl Administered Medications Lorazepam (Lorazepam 0.5 Mg Tab) 0.5 mg PO TID AVERY Stop: 02/05/24 13:59 Last Admin: 01/06/24 20:11 Dose: 0.5 mg Documented By: Admin: 01/06/24 14:53 Dose: 0.5 mg Documented By: PK Discontinued Medications Acetylcysteine (Acetylcysteine Iv 21 Hr Regimen (>40kg)) 1 each IV NOW STA; Protocol Stop: 01/06/24 00:57 Last Admin: 01/06/24 03:05 Dose: Not Given Documented By: TANIA Sodium Chloride (Nss) 1,000 mls @ 999 mls/hr IV .Q1H1M ONE Stop: 01/06/24 00:11 Last Infusion: 01/06/24 00:44 Dose: Infused Documented By: Admin: 01/05/24 23:27 Dose: 999 mls/hr Documented By: PARMINDER Acetylcysteine 12,750 mg/ (Dextrose) 263.75 mls @ 200 mls/hr IV ONCE ONE; Protocol Stop: 01/06/24 01:55 Last Infusion: 01/06/24 03:06 Dose: Infused Documented By: Admin: 01/06/24 01:45 Dose: 200 mls/hr Documented By: YULIA Acetylcysteine 4,250 mg/ (Dextrose) 521.25 mls @ 125 mls/hr IV ONCE ONE; Protocol Stop: 01/06/24 05:55 Last Infusion: 01/06/24 07:01 Dose: Infused Documented By: Infusion: 01/06/24 04:58 Dose: 125 mls/hr Documented By: Admin: 01/06/24 02:57 Dose: 125 mls/hr Documented By: YULIA Acetylcysteine 8,500 mg/ (Dextrose) 1,042.5 mls @ 62.5 mls/hr IV ONCE ONE; Protocol Stop: 01/06/24 21:55 Last Infusion: 01/06/24 22:11 Dose: Infused Documented By: Admin: 01/06/24 07:00 Dose: 62.5 mls/hr Documented By: MAGALI Prochlorperazine 5 mg/ Syringe 5 mls @ 5 mls/min IV ONE ONE Stop: 01/06/24 05:31 Last Admin: 01/06/24 05:42 Dose: 5 mls/min Documented By: MAGALI Lactated Ringer's (Lr) 500 mls @ 999 mls/hr IV .Q31M ONE Stop: 01/06/24 17:50 Last Infusion: 01/06/24 18:40 Dose: Infused Documented By: Admin: 01/06/24 18:07 Dose: 999 mls/hr Documented By: GAMA Lorazepam (Lorazepam 1 Mg Tab) 0.5 mg SL NOW STA Stop: 01/05/24 23:09 Last Admin: 01/05/24 23:27 Dose: 0.5 mg Documented By: ASW Olanzapine (Olanzapine Zydis 5 Mg Orally Dis. Tab) 5 mg PO NOW STA Stop: 01/06/24 00:06 Last Admin: 01/06/24 00:11 Dose: 5 mg Documented By: YULIA Ondansetron HCl (Ondansetron Inj 2 Mg/Ml 2 Ml Vial) Confirm Administered Dose 4 mg .ROUTE .STK-MED ONE Stop: 01/06/24 02:08 Last Admin: 01/06/24 02:16 Dose: Not Given Documented By: YULIA Ondansetron HCl (Ondansetron Inj 2 Mg/Ml 2 Ml Vial) 4 mg IV NOW STA Stop: 01/06/24 02:07 Last Admin: 01/06/24 02:16 Dose: 4 mg Documented By: YULIA Potassium Chloride (Potassium Chloride Crtab 20 Meq Tabcr) 40 meq PO NOW STA Stop: 01/06/24 22:24 Last Admin: 01/06/24 22:29 Dose: 40 meq Documented By: SNTahir Discharge Plan Visit Data Chief Complaint: Overdose (Intentional) Stated Complaint: OVERDOSE ED Provider: Traci Hirsch Discharge Problem: Tylenol ingestion, Suicide attempt, Autism Patient Disposition: Admitted As Inpatient Discharge Instructions Interventions: ED Discharge Assessment Last Done: 01/06/24 03:41 Discharge Problem: Tylenol ingestion Qualifiers: Encounter type: initial encounter Injury intent: intentional self-harm Q ualified Code(s): T39.1X2A - Poisoning by 4-Aminophenol derivatives, intentional self-harm, initial encounter
[2024-01-05] MEDS: LORazepam 1 MG TAB SL STA (23:27)
[2024-01-05] MEDS: SODIUM CHLORIDE 0.9% 1,000 ML IV ONE (23:27)
[2024-01-05 23:57] LABS: Basophils # (auto) 0.09 K/uL (0.00-0.20); Basophils % (auto) 0.6 %; Eosinophils # (auto) 0.31 K/uL (0.00-0.50); Eosinophils % (auto) 2.1 %; Hemoglobin 12.2 g/dl (12.0-16.0); Immature Granulocytes # (auto) 0.07 K/uL (0.01-0.20); Immature Granulocytes % (auto) 0.5 %; Lymphocytes # (auto) 4.66 K/uL (1.20-3.40); Lymphocytes % (auto) 32.2 %; Mean Corpuscular Hemoglobin 28.1 pg (25.0-34.0); Mean Corpuscular Hgb Conc 32.1 g/dL (32.0-36.0); Mean Corpuscular Volume 87.6 fL (80.0-100.0); Mean Platelet Volume 10.3 fL (9.4-12.4); Monocytes # (auto) 0.85 K/uL (0.11-0.59); Monocytes % (auto) 5.9 %; Neutrophils % (auto) 58.7 %; Platelet Count 337 K/uL (130-400); RDW Coefficient of Variation 12.2 % (11.5-14.5); RDW Standard Deviation 39.2 fL (36.4-46.3); Red Blood Count 4.34 M/uL (4.20-5.40); White Blood Count 14.48 K/ul (4.8-10.8)
[2024-01-06] MEDS: OLANZapine ZYDIS 5 MG ORALLY DIS. TAB PO STA (00:11)
[2024-01-06 00:12] LABS: Alanine Aminotransferase 17 U/L (7-52); Albumin Globulin Ratio 1.6 (0.9-2); Albumin Level 4.3 gm/dl (3.4-5.0); Alkaline Phosphatase 101 U/L (34-104); Anion Gap 10 (3-11); Aspartate Aminotransferase 15 U/L (13-39); BUN Creatinine Ratio 22.6 (10-20); Bilirubin,Total 0.2 mg/dl (0.2-1.0); Blood Urea Nitrogen 14 mg/dl (6-23); Calcium 9.6 mg/dl (8.6-10.3); Carbon Dioxide 23 mmol/L (21-32); Chloride 104 mmol/L (98-107); Est GFR (African American) > 150.0 ml/min; Est GFR (Non-African American) 130.7 ml/min; Globulin 2.7 gm/dl (2.5-4.0); Glucose 110 mg/dl (70-99(Fasting)); Potassium 3.8 mmol/L (3.5-5.1); Sodium 137 mmol/L (136-145)
[2024-01-06 00:16] LABS: Appearance Urine Clear (Clear); Bacteria Urine Automated 2+ (None Seen); Bilirubin Urine Negative (Negative); Blood Urine Negative (Negative); Cast Urine Automated 0-2 /lpf (0-2); Color Urine Yellow; Glucose Urine UA Negative (Negative); Ketones Urine Negative (Negative); Leukocyte Esterase Urine Negative (Negative); Nitrite Urine Negative (Negative); Protein Urine Trace (Negative); RBC Urine Automated 0-2 /hpf (0-2); Specific Gravity Urine 1.042 (1.000-1.030); Urobilinogen Urine Negative (Negative); WBC Urine Automated 0-5 /hpf (0-5)
[2024-01-06 00:28] LABS: Thyroid Stimulating Hormone 2.211 uIu/ml (0.300-4.500)
[2024-01-06 00:31] LABS: INR 0.9 (0.9-1.1); Partial Thromboplastin Time 26 Seconds (21-31); Prothrombin Time 10.1 Seconds (9.0-12.0)
[2024-01-06 00:55] LABS: Acetaminophen 267 ug/ml (10-30); Salicylate < 3.0 mg/dl (3.0-30)
[2024-01-06] MEDS ORDERED: STAT IV/IM STA (00:56)
[2024-01-06 00:57] LABS: Amphetamines+Metham, Urine Neg (Neg); Barbiturates, Urine Neg (Neg); Benzodiazepine, Urine Neg (Neg); Cocaine, Urine Neg (Neg); Fentanyl, Urine Neg (Neg); MDMA (Ecstacy), Urine Neg (Neg); Marijuana, Urine Neg (Neg); Methadone, Urine Neg (Neg); Opiate, Urine Neg (Neg); Phencyclidine, Urine Neg (Neg)
--- NOTE | 2024-01-06 01:21 | History & Physical Report ---
Date of Service January 06, 2024 Assessment & Plan (1) Intentional overdose: Plan: Multiple prior attempts. NAC protocol initiated. Poison control on board - appreciate recs. Zyprexa worked well - 5 mg ODT PRN BID for agitation. NAC protocol, trend CMP, tylenol level, PT/INR q12H psych consult - appreciate recs Zyprexa PRN for agitation/combativeness Zofran PRN for nausea (2) Obesity (BMI 30-39.9): Plan: Patient ?on metformin. Would resume once outside of the window of tylenol toxicity if confirmed to be a home med (3) Autism spectrum disorder: Plan: Home med list has not been confirmed. Would defer to psychiatric team on medication re-initiation (4) ADHD: Plan: See above (5) Intellectual disability: Plan: See above (6) Mood disorder: Plan: See above (7) Intermittent explosive disorder: Plan: See above (8) Tylenol ingestion: Plan: See above Plan Code status: full DVT ppx: low risk, ambulation FENGI: safe tray, regular diet Dispo: tele unit, likely d/c to 3S History of Present Illness Chief Complaint: intentional OD Primary Care Provider: Diane Ugalde MD 18 y/o has a history of ASD with intellectual disability, IED, ADHD, depression, anxiety, and multiple suicide attempts here after intentional over-ingestion of Tylenol. Patient took about half of a bottle of a pain killer. Confirmed Tylenol. Unclear how many pills or the strength of the medication. No other ingestions. ED physician discussed case with poison control. Started NAC. Tylenol level 267. Did receive Zyprexa and ativan while in the ED as patient intermittently combative. Recommended admission. Patient drowsy, but arousable. Denies any pain, nausea, or vomiting. Would like to go back to sleep. Allergies Allergy/AdvReac Type Severity Reaction Status Date / Time No Known Drug Allergies Allergy . Verified 01/06/24 01:04 Home Medications Medication Instructions Recorded Confirmed Type clonazepam 0.5 mg tablet (Klonopin) 0.5 mg PO BID 07/06/23 01/06/24 History sertraline 50 mg tablet (Zoloft) 50 mg PO DAILY 07/06/23 01/06/24 History lamotrigine 25 mg tablet (Lamictal) 150 mg PO QA 09/12/23 01/06/24 History buspirone 10 mg tablet 10 mg PO TID 10/28/23 01/06/24 History buspirone 10 mg tablet 10 mg PO 3XD 01/06/24 01/06/24 History levonorgestrel-ethinyl estradiol 1 tab QPM 01/06/24 01/06/24 History 0.1 mg-20 mcg tablet (Vienva) risperidone 0.5 mg tablet 0.5 mg PO 2XD 01/06/24 01/06/24 History Past Med/Surg History Problem List (Updated 01/06/24 @ 06:40 by Traci Hirsch MD) Autism (Acute) Suicide attempt (Acute) Intentional overdose Tylenol ingestion (Acute) Obesity (BMI 30-39.9) Intermittent explosive disorder Mood disorder (Acute) Autism spectrum disorder (Acute) ADHD Intellectual disability (Acute) LMNA gene mutation (Acute) Medical History Depression with suicidal ideation Suicide attempt by multiple drug overdose Overdose Suicidal ideation Encounter for prescription of oral contraceptives Depression with suicidal ideation Suicidal behavior with attempted self-injury Diphenhydramine overdose Surgical History No history of previous surgery Family History Unknown Adopted Social History Smoking Status: Never smoker Second Hand Exposure: No; Do You Dip or Chew Tobacco: No; Tobacco Cessation Education Requested by Patient: No Hx Alcohol Use: No Hx Substance Use: No Preferred Language: Persian Communication Ability: Effective Drum Straightener Required: No Beliefs That Will Affect Care: None Current Living Situation: Family Current Living Situation Comment: Adopted/ parents/ older adopted sister Other Information That Helps Us Care for You: No other: adopted Feels Safe at Home: Yes Safety Concerns: Feels Safe At This Time Childhood Exposure to Second-Hand Smoke: No Gender Identity: Female Assistive Devices: None Review of Systems Review of Systems: See HPI Physical Exam Physical Exam: Gen: drowsy, but arousable, well appearing patient in NAD HEENT: AT NC MMM Resp: CTAB no wheezing no increased work of breathing CV: RRR no m/r/g clinically well perfused Abd: soft, non-tender, non-distended, +BS MSK: no obvious deformities Skin: no rashes or bruising Neuro: alert and oriented Psych: appropriate mood and affect Results & Data Results & Data Vital Signs (Past 12 Hours) Vital Signs Temp Pulse Pulse Resp BP BP Pulse Ox 01/06/24 00:25 96 H 16 126/95 96 01/05/24 23:42 101 H 01/05/24 23:27 112 H 16 122/89 94 01/05/24 23:00 37 C 113 H 17 133/88 97 O2 Del Method 01/06/24 00:25 Room Air 01/05/24 23:42 01/05/24 23:27 Room Air 01/05/24 23:00 Room Air Laboratory Results Abnormal Labs 01/05/24 01/05/24 23:05 23:24 WBC 14.48 H Neut # (Auto) 8.50 H Lymph # (Auto) 4.66 H [place] # (Auto) 0.85 H BUN/Creatinine Ratio 22.6 H Glucose 110 H Ur Specific [place] 1.042 H Urine Protein Trace H U Epithel Cells (Auto) 3-5 H Urine Bacteria (Auto) 2+ H Salicylates < 3.0 L Acetaminophen 267 H* Supervising Physician Co-Signing Physician Notes Patient seen and examined, chart reviewed, case discussed with Dr. Reynolds and I agree with the assessment and plan as above. Patient with intentional Tylenol overdose. Not certain how many tabs she took or what strength/formulation Elevated Acetaminophen level on arrival at 267 which increased to 439 on repeat (02:37, likely 4 hour post-ingestion value) LFTs remain stable. INR is WNL Patient has been initiated on NAC Protocol On exam she is resting comfortably, does not readily answer questions, follows commands Skin - intact HEENT - MMM, Neck supple Heart - +S1/S2, regular, no m/r/g Lungs - CTA Abd - soft, NT/ND Ext - warm, well perfused Labs and images reviewed Assessment/Plan Intentional Tylenol Overdose, patient with history of prior suicide attempt as well as depression. -Admit to PCU -1:1 observation and suicide precautions -Continue NAC protocol Patient is having quite a bit of nausea since starting on the NAC - ?medication effect vs Tylenol effect. Zofran ordered, given one time dose of Compazine as well which helped -Close laboratory monitoring - CMP, Acetaminophen level and INR q 12 hours with next being at 19:00 -Psychiatry consultation appreciated -Remainder as above Resident Activity Tracking Resident Involvement: Resident Care Provided Care Provided: Adult Hospital Medicine
[2024-01-06] MEDS: ONDANSETRON INJ 2 MG/ML 2 ML VIAL IV STA (02:16)
[2024-01-06] MEDS: ONDANSETRON INJ 2 MG/ML 2 ML VIAL ONE (02:16)
[2024-01-06 02:48] LABS: Hemoglobin 11.1 g/dl (12.0-16.0); Mean Corpuscular Hemoglobin 27.9 pg (25.0-34.0); Mean Corpuscular Hgb Conc 31.7 g/dL (32.0-36.0); Mean Corpuscular Volume 87.9 fL (80.0-100.0); Platelet Count 289 K/uL (130-400); RDW Coefficient of Variation 12.3 % (11.5-14.5); RDW Standard Deviation 39.6 fL (36.4-46.3); Red Blood Count 3.98 M/uL (4.20-5.40); White Blood Count 11.16 K/ul (4.8-10.8)
[2024-01-06 03:05] LABS: Alanine Aminotransferase 17 U/L (7-52); Albumin Globulin Ratio 1.6 (0.9-2); Albumin Level 3.8 gm/dl (3.4-5.0); Alkaline Phosphatase 82 U/L (34-104); Anion Gap 11 (3-11); Aspartate Aminotransferase 14 U/L (13-39); Bilirubin,Total 0.2 mg/dl (0.2-1.0); Blood Urea Nitrogen 11 mg/dl (6-23); Calcium 8.1 mg/dl (8.6-10.3); Carbon Dioxide 22 mmol/L (21-32); Chloride 104 mmol/L (98-107); Est GFR (African American) > 150.0 ml/min; Est GFR (Non-African American) 140.3 ml/min; Globulin 2.4 gm/dl (2.5-4.0); Glucose 205 mg/dl (70-99(Fasting)); Potassium 3.9 mmol/L (3.5-5.1); Sodium 137 mmol/L (136-145); Total Protein 6.2 gm/dl (6.0-8.3)
[2024-01-06] MEDS: AcetylCYSTEINE IV 21 HR REGIMEN (>40KG) IV STA (03:05)
[2024-01-06] MEDS ORDERED: POLYETHYLENE (MIRALAX) 17 GM PACK PO PRN (04:02)
[2024-01-06] MEDS ORDERED: OLANZapine ZYDIS 5 MG ORALLY DIS. TAB PO PRN (04:02)
[2024-01-06] MEDS ORDERED: ONDANSETRON INJ 2 MG/ML 2 ML VIAL IV PRN (04:02)
[2024-01-06] MEDS: PROCHLORPERAZINE 5 MG in SYRINGE 4 ML IV ONE (05:42)
--- NOTE | 2024-01-06 07:11 | Billing Data ---
Date of Service January 06, 2024 Coding Level of Care Code 74968 INT INP/OBS CARE
--- NOTE | 2024-01-06 07:35 | Hospitalist Progress Note ---
Date of Service January 06, 2024 Assessment & Plan (1) Intentional overdose: Plan: Isabell is an 17F w/ PMH Of ADHD, autism, multiple suicide attempts, obesity, explosive disorder, mood disorder, and intelectual disability who presented for intentional tylenol overdose of 40-50 tabs. NAC protocol was started on arrival. Psychiatry following. - Multiple prior attempts of overdose are noted - Intentional Tylenol overdose Acetaminophen level 267 on arrival, 439 @ 0230 NAC protocol initiated immediately as per poison control recommendation, now complete Continue trending CMP, PT/INR 01/05 labs remain unremarkable - Agitation Zyprexa worked well - 5 mg ODT PRN BID for agitation in ER, however she is not violent after she arrived to floor - Psychiatry consultation: Inpatient psychiatry admission, continue 302 Lorazepam 0.5mg PO TID Continue Olanzapine 5mg PO/IM BID PRN for agitation Hold home psychiatric medications - Zofran PRN for nausea (2) Tylenol ingestion: Plan: = Per #1 (3) Obesity (BMI 30-39.9): Plan: - Question of Metformin use outpatient, unconfirmed at home Held during Tylenol toxicity period (4) Autism spectrum disorder: Plan: - Management per inpatient psychiatry. (5) ADHD: Plan: - Management per inpatient psychiatry. (6) Intellectual disability: Plan: - Management per inpatient psychiatry. (7) Mood disorder: Plan: - Likely contribution to suicide attempt - Home management held - Inpatient management per Psychiatry - intermediate manager management pending acute stabilization (8) Intermittent explosive disorder: Plan: - Management per inpatient psychiatry. (9) Bradycardia: Plan: -Her heart rate today morning was 57/ min; was as high as 113 yesterday. She is not symptomatic because of this. - HR wnl on examination this morning Telemetry and EKGs remain sinus Plan Code status: full DVT ppx: low risk, ambulation FENGI: safe tray, regular diet Dispo: tele unit, likely d/c to 3S Admission and Anticipated Discharge Date Admission Date: January 06, 2024 Supervising Physician Co-Signing Physician Notes Attending Physician Supervision Note: I independently interviewed and examined the patient and verified the friedman history and physical, reviewed labs and image studies and agree with findings and care plan noted above. Intentional Tylenol Overdose, patient with history of prior suicide attempt as well as depression. -1:1 observation and suicide precautions -Acetaminophen level from 3am reviewed. Continue NAC protocol -Normal LFT 01/05. Follow labs in am. -Seen by psychiatry - -Inpatient psychiatry admission, continue 302 -Lorazepam 0.5mg PO TID -Continue Olanzapine 5mg PO/IM BID PRN for agitation -Hold home psychiatric medications Subjective Today morning, she is doing fine overall, sleeping in her bed comfortably. She does not seem distressed, ate some breakfast, does not have much appetite, thou gh. She was not agitated like last night; talked to her nurse as well; she was cooperative throughout her care after came up from ER. Review of Systems Review of Systems: All systems reviewed & are unremarkable except as noted in HPI & below Physical Exam Constitutional: well developed and well nourished NAD, vitals WNL. Eyes: PERRLA. Conjunctivae normal. Respiratory: CTA bilaterally. Non labored breathing. No rhonchi, wheezing, or crackles. Cardiovascular: RRR. No murmurs noted. No LE edema. Gastrointestinal (Abdomen): Nontender, +BS. No masses noted. Skin: No rashes or skin lesions noted. Neurologic: Sensation grossly intact. No FND appreciated. Psychiatric: Speech of normal pace and content. Mood and affect congruent. Results & Data Results & Data Vital Signs (Past 12 Hours) Vital Signs Temp Pulse Pulse Resp BP BP BP 01/06/24 07:01 36.4 C L 57 L 16 113/76 01/06/24 04:09 36.0 C L 97 H 18 110/71 01/06/24 04:00 70 01/06/24 03:56 35.6 C L 73 17 108/69 01/06/24 02:36 99 H 20 01/06/24 02:31 133/76 01/06/24 02:31 133/76 01/06/24 02:24 89 26 H 01/06/24 02:21 98 H 22 01/06/24 02:00 148/79 H 01/06/24 02:00 148/79 H 01/06/24 02:00 90 18 148/79 H 01/06/24 01:51 112 H 23 01/06/24 01:30 92 H 22 01/06/24 01:12 98 H 22 01/06/24 01:00 139/94 01/06/24 01:00 139/94 01/06/24 00:36 105 H 19 01/06/24 00:33 92 H 21 01/06/24 00:25 126/95 01/06/24 00:25 126/95 01/06/24 00:25 126/95 01/06/24 00:25 96 H 16 126/95 01/06/24 00:21 102 H 21 01/05/24 23:48 107 H 21 01/05/24 23:42 101 H 01/05/24 23:27 112 H 16 122/89 01/05/24 23:00 37 C 113 H 17 133/88 Pulse Ox O2 Del Method 01/06/24 07:01 98 Room Air 01/06/24 04:09 96 Room Air 01/06/24 04:00 01/06/24 03:56 95 Room Air 01/06/24 02:36 98 01/06/24 02:31 01/06/24 02:31 01/06/24 02:24 97 01/06/24 02:21 99 01/06/24 02:00 01/06/24 02:00 01/06/24 02:00 98 Room Air 01/06/24 01:51 89 L 01/06/24 01:30 89 L 01/06/24 01:12 90 01/06/24 01:00 01/06/24 01:00 01/06/24 00:36 97 01/06/24 00:33 100 01/06/24 00:25 01/06/24 00:25 01/06/24 00:25 01/06/24 00:25 96 Room Air 01/06/24 00:21 93 01/05/24 23:48 98 01/05/24 23:42 01/05/24 23:27 94 Room Air 01/05/24 23:00 97 Room Air Resident Activity Tracking Resident Involvement: Resident Care Provided Care Provided: Adult Hospital Medicine (2) Tylenol ingestion Encounter type: initial encounter Injury intent: intentional self-harm Qualified Code(s): T39.1X2A - Poisoning by 4-Aminophenol derivatives, intentional self-harm, initial encounter
--- NOTE | 2024-01-06 09:08 | Electrocardiogram Report ---
Test Reason : Blood Pressure : */* mmHG Vent. Rate : 112 BPM Atrial Rate : 112 BPM P-R Int : 172 ms QRS Dur : 74 ms QT Int : 330 ms P-R-T Axes : 36 37 9 degrees QTcB Int : 450 ms Sinus tachycardia Borderline ECG When compared with ECG of 27-Oct-2023 19:34, No significant change was found Confirmed by Bruce Anne ([id number]) on 01/06/2024 9:07:31 AM Referred By: REFERRED SELF Confirmed By: Bruce Anne
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
[2024-01-06] MEDS: LORazepam 0.5 MG TAB PO SCH (14:53)
[2024-01-06] MEDS: LACTATED RINGER'S 500 ML IV ONE (18:07)
[2024-01-06 19:07] VITALS: RESP 16
[2024-01-06 20:35] LABS: INR 1.1 (0.9-1.1); Prothrombin Time 11.6 Seconds (9.0-12.0)
[2024-01-06 20:49] LABS: Alanine Aminotransferase 28 U/L (7-52); Albumin Globulin Ratio 1.6 (0.9-2); Albumin Level 3.9 gm/dl (3.4-5.0); Alkaline Phosphatase 80 U/L (34-104); Anion Gap 9 (3-11); Aspartate Aminotransferase 22 U/L (13-39); Bilirubin,Total 1.2 mg/dl (0.2-1.0); Blood Urea Nitrogen 9 mg/dl (6-23); Calcium 8.9 mg/dl (8.6-10.3); Carbon Dioxide 21 mmol/L (21-32); Chloride 108 mmol/L (98-107); Est GFR (African American) > 150.0 ml/min; Est GFR (Non-African American) 137.6 ml/min; Globulin 2.5 gm/dl (2.5-4.0); Glucose 100 mg/dl (70-99(Fasting)); Potassium 3.1 mmol/L (3.5-5.1); Sodium 138 mmol/L (136-145); Total Protein 6.4 gm/dl (6.0-8.3)
[2024-01-06] MEDS: POTASSIUM CHLORIDE CRTAB 20 MEQ TABCR PO STA (22:29)
[2024-01-07 04:39] VITALS: BP 141/92; TEMP 97.9; O2SAT 98
--- NOTE | 2024-01-07 06:40 | Hospitalist Progress Note ---
Date of Service January 07, 2024 Assessment & Plan (1) Intentional overdose: Plan: Isabell is an 17F w/ PMH Of ADHD, autism, multiple suicide attempts, obesity, explosive disorder, mood disorder, and intelectual disability who presented for intentional tylenol overdose of 40-50 tabs. NAC protocol was started on arrival. Psychiatry following. - Multiple prior attempts of overdose are noted - Intentional Tylenol overdose Acetaminophen level 267 on arrival, 439 @ 0230 NAC protocol initiated immediately as per poison control recommendation, now complete Continue trending CMP, PT/INR 01/05 labs remain unremarkable - Agitation Zyprexa worked well - 5 mg ODT PRN BID for agitation in ER, however she is not violent after she arrived to floor - Psychiatry consultation: Inpatient psychiatry admission, continue 302 Lorazepam 0.5mg PO TID Continue Olanzapine 5mg PO/IM BID PRN for agitation Hold home psychiatric medications - Zofran PRN for nausea (2) Tylenol ingestion: Plan: = Per #1 (3) Obesity (BMI 30-39.9): Plan: - Question of Metformin use outpatient, unconfirmed at home Held during Tylenol toxicity period (4) Autism spectrum disorder: Plan: - Management per inpatient psychiatry. (5) ADHD: Plan: - Management per inpatient psychiatry. (6) Intellectual disability: Plan: - Management per inpatient psychiatry. 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 (9) Bradycardia: Plan: -Her heart rate today morning was 57/ min; was as high as 113 yesterday. She is not symptomatic because of this. - HR wnl on examination this morning Telemetry and EKGs remain sinus Plan Code status: full DVT ppx: low risk, ambulation FENGI: safe tray, regular diet Dispo: tele unit, likely d/c to 3S Admission and Anticipated Discharge Date Admission Date: January 06, 2024 Subjective Today morning, she is doing fine overall, sleeping in her bed comfortably. She does not seem distressed, ate some breakfast, does not have much appetite, though. She was not agitated like last night; talked to her nurse as well; she was cooperative throughout her care after came up from ER. Review of Systems Review of Systems: See HPI Physical Exam Constitutional: well developed and well nourished Results & Data Results & Data Vital Signs (Past 12 Hours) Vital Signs Temp Pulse Pulse Resp BP BP Pulse Ox 01/07/24 04:38 36.6 C 99 H 16 141/92 H 98 01/06/24 23:02 36.4 C L 92 H 16 125/81 96 01/06/24 21:42 101 H 01/06/24 19:06 36.9 C 89 16 137/85 97 O2 Del Method 01/07/24 04:38 Room Air 01/06/24 23:02 Room Air 01/06/24 21:42 01/06/24 19:06 Room Air (2) Tylenol ingestion Encounter type: initial encounter Injury intent: intentional self-harm Qualified Code(s): T39.1X2A - Poisoning by 4-Aminophenol derivatives, intentional self-harm, initial encounter
[2024-01-07 07:11] LABS: Alanine Aminotransferase 29 U/L (7-52); Albumin Globulin Ratio 1.6 (0.9-2); Albumin Level 3.8 gm/dl (3.4-5.0); Alkaline Phosphatase 76 U/L (34-104); Anion Gap 6 (3-11); Aspartate Aminotransferase 21 U/L (13-39); BUN Creatinine Ratio 12.8 (10-20); Bilirubin,Total 0.5 mg/dl (0.2-1.0); Blood Urea Nitrogen 6 mg/dl (6-23); Calcium 8.6 mg/dl (8.6-10.3); Carbon Dioxide 23 mmol/L (21-32); Chloride 109 mmol/L (98-107); Creatinine Clr Calc Pharmacy 211.6 ml/min; Est GFR (African American) > 150.0 ml/min; Est GFR (Non-African American) 143.2 ml/min; Globulin 2.4 gm/dl (2.5-4.0); Glucose 102 mg/dl (70-99(Fasting)); Potassium 3.5 mmol/L (3.5-5.1); Sodium 138 mmol/L (136-145); Total Protein 6.2 gm/dl (6.0-8.3)
--- NOTE | 2024-01-07 07:11 | XRay Report ---
RIGHT FOOT 3 VIEWS HISTORY: Right foot pain. limp COMPARISON: None. FINDINGS: There is a slightly distracted oblique fracture within the neck of the right fifth metatars al. This demonstrates up to 2 mm of distraction. No dislocation. Lateral soft tissue swelling within the forefoot. The Lisfranc joint is intact. No radiopaque foreign bodies. IMPRESSION: Slightly distracted right fifth metatarsal fracture. ACT 112: Negative or not required by law. Electronically signed by: Gregorio Davis M.D. 01/07/2024 7:10 AM
[2024-01-07 07:19] LABS: Prothrombin Time 11.3 Seconds (9.0-12.0)
[2024-01-07 07:37] LABS: Hematocrit (blood only) 35.1 % (37.0-47.0); Hemoglobin 11.8 g/dl (12.0-16.0); Mean Corpuscular Hemoglobin 28.5 pg (25.0-34.0); Mean Corpuscular Hgb Conc 33.6 g/dL (32.0-36.0); Mean Corpuscular Volume 84.8 fL (80.0-100.0); Mean Platelet Volume 10.2 fL (9.4-12.4); Platelet Count 322 K/uL (130-400); RDW Coefficient of Variation 12.9 % (11.5-14.5); RDW Standard Deviation 39.2 fL (36.4-46.3); Red Blood Count 4.14 M/uL (4.20-5.40); White Blood Count 12.01 K/ul (4.8-10.8)
--- NOTE | 2024-01-07 08:36 | Communication Note ---
Date of Service: January 07, 2024 Patient is medically stable to be discharged to Psychiatric unit.
[2024-01-07 09:07] VITALS: PULSE 99
[2024-01-07 11:42] LABS: Influenza A virus by PCR Negative (Neg); Influenza B virus by PCR Negative (Neg); RSV by PCR Negative (Neg); SARS CoV2 RNA(COVID-19) Ceph NEGATIVE (Negative)
--- NOTE | 2024-01-07 13:01 | Podiatry Consultation ---
Date of Consultation January 07, 2024 Assessment & Plan (1) Fracture of fifth metatarsal bone of right foot: Encounter type: initial encounter Fracture alignment: nondisplaced Fracture type: closed Qualified Code(s): S92.354A - Nondisplaced fracture of fifth metatarsal bone, right foot, initial encounter for closed fracture Plan Patient examined and evaluated. Currently dressed and Gm bandage and Webril compression dressing. This was taken down to assess the quality of her foot. There is no open lesion and only minimal ecchymosis and edema. Radiographs do confirm a nondisplaced fracture. She would benefit from remaining weightbearing as tolerated only in the surgical shoe or even better would be a surgical boot for the next 4-6 weeks. At that time, she can transition out of the supportive immobilizing shoe or boot and transition to a athletic shoe. We discussed that the fracture takes 2 months to heal but should heal fine with only minimal displacement noted. As long as she can be discharged with a surgical shoe, she can avoid further follow-up until 4-6 weeks from now when she would benefit from follow-up x-rays. Patient understands treatment plan and agree is in agreement with it. We will plan on seeing her in 4-8 weeks for further radiographs outpatient. History of Present Illness Reason for Consultation: Right fifth metatarsal fracture Attending Physician: Alis Parry MD History of Present Illness patient seen at bedside. She states that yesterday she was having a bad day and attempted suicide by overdose of Tylenol. This led to some instability and a fall. During this fall, she landed hard on her foot. Because of the suicide attempt in the continued foot pain, she was admitted to the hospital for further examination. She has been cleared medically and rated graft have been obtained to evaluate the foot. Otherwise, she she has done well in this hospitalization with improvement in her mood and temperament as well as, seemingly, her depression and ideations. She is looking forward to multiple events towards the end of the summer and is interested in her weightbearing status and her ability to partake in these events. Currently, her foot hurts, but the pain has improved since yesterday as well. Allergies Allergy/AdvReac Type Severity Reaction Status Date / Time No Known Drug Allergies Allergy . Verified 01/06/24 01:04 Home Medications Medication Instructions Recorded Confirmed Type clonazepam 0.5 mg tablet (Klonopin) 0.5 mg PO BID 07/06/23 01/06/24 History sertraline 50 mg tablet (Zoloft) 50 mg PO DAILY 07/06/23 01/06/24 History lamotrigine 25 mg tablet (Lamictal) 150 mg PO QAM 09/12/23 01/06/24 History buspirone 10 mg tablet 10 mg PO TID 10/28/23 01/06/24 History buspirone 10 mg tablet 10 mg PO 3XD 01/06/24 01/06/24 History levonorgestrel-ethinyl estradiol 1 tab QPM 01/06/24 01/06/24 History 0.1 mg-20 mcg tablet (Vienva) risperidone 0.5 mg tablet 0.5 mg PO 2XD 01/06/24 01/06/24 History Patient History Medical History Depression with suicidal ideation Suicide attempt by multiple drug overdose Overdose Suicidal ideation Encounter for prescription of oral contraceptives Depression with suicidal ideation Suicidal behavior with attempted self-injury Diphenhydramine overdose Surgical History No history of previous surgery Family History Unknown Adopted Social History Smoking Status: Never smoker Second Hand Exposure: No; Do You Dip or Chew Tobacco: No; Hx Alcohol Use: No Hx Substance Use: No Preferred Language: Armenian Communication Ability: Effective 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 Beliefs That Will Affect Care: None Current Living Situation: Family Current Living Situation Comment: Adopted/ parents/ older adopted sister other: adopted Feels Safe at Home: Yes Childhood Exposure to Second-Hand Smoke: No Gender Identity: Female Assistive Devices: None Review of Systems Review of Systems: All systems reviewed & are unremarkable except as noted in HPI & below Constitutional: no fever, no chills and no fatigue Eyes: no problem reported Ear, Nose, Mouth, Throat: no problem reported Respiratory: no problem reported Cardiovascular: + edema; no problem reported Gastrointestinal: no nausea, no vomiting and no problem reported Genitourinary: no problem reported Musculoskeletal: no problem reported Neurologic: + loss of sensation, + numbness and + pa resthesia; no generalized weakness Psychiatric: + hopelessness and + suicidal ideation; no problem reported Physical Exam Physical Exam: right lower extremity focused exam: DP/PT pulses 2/4 bilaterally. Skin is healthy with normal texture and turgor. No open lesions are noted overlying the fifth metatarsal fracture site, noted radiographically. Pain is noted on palpation of the surgical neck of the fifth metatarsal. Pain is consistent with the underlying radiographic findings. Otherwise, there is minimal edema and ecchymosis noted. CFT is brisk to the digits. Constitutional: WD/WN, vitals as above + ill appearing and + obese Eyes: PERRL, conjunctivae normal, anicteric sclerae ENMT: external ear and nose normal, oropharynx normal Neck: trachea midline, no thyromegaly normal visual inspection Respiratory: normal respiratory effort; no respiratory distress Cardiovascular: Rate/Rhythm: regular rate and regular rhythm Chest (Breasts): Chest: normal inspection of chest Gastrointestinal (Abdomen): Inspection/Auscultation: abdomen normal to inspection Percussion/Palpation: + abdomen tender and abdomen soft Musculoskeletal: no cyanosis or clubbing, extremities motor strength 5/5 Head/Neck/Chest: normocephalic and head atraumatic Extremities: extremities normal to inspection Skin: Trauma: + contusion Neurologic: awake; no focal motor deficits Psychiatric: A+Ox3, euthymic affect Results & Data Vital Signs (Past 12 Hours) Vital Signs Temp Pulse Pulse Resp BP BP Pulse Ox 01/07/24 09:05 36.6 C 99 H 16 141/92 H 137/85 98 01/07/24 06:56 94 H 01/07/24 04:38 36.6 C 99 H 16 141/92 H 98 O2 Del Method 01/07/24 09:05 01/07/24 06:56 01/07/24 04:38 Room Air Diagnostic Findings radiographs obtained in 3 views of the foot do reveal a nondisplaced fifth metatarsal distal fracture, at the surgical neck. This is confirmed in all 3 views and no significant angulation or dislocation is appreciated. No extension is noted into the fifth metatarsophalangeal joint.
--- NOTE | 2024-01-07 13:40 | Discharge Summary ---
Date of Service January 07, 2024 Admission HPI Per Admitting Provider 18 y/o has a history of ASD with intellectual disability, IED, ADHD, depression, anxiety, and multiple suicide attempts here after intentional over-ingestion of Tylenol. Patient took about half of a bottle of a pain killer. Confirmed Tylenol. Unclear how many pills or the strength of the medication. No other ingestions. ED physician discussed case with poison control. Started NAC. Tylenol level 267. Did receive Zyprexa and ativan while in the ED as patient intermittently combative. Recommended admission. Patient drowsy, but arousable. Denies any pain, nausea, or vomiting. Would like to go back to sleep. Admission Exam Per Admitting Provider Gen: drowsy, but arousable, well appearing patient in NAD HEENT: AT NC MMM Resp: CTAB no wheezing no increased work of breathing CV: RRR no m/r/g clinically well perfused Abd: soft, non-tender, non-distended, +BS MSK: no obvious deformities Skin: no rashes or bruising Neuro: alert and oriented Psych: appropriate mood and affect Principal Diagnosis Tylenol Overdose Discharge Exam Constitutional: well developed and well nourished NAD, vitals WNL. Eyes: PERRLA. Conjunctivae normal. Respiratory: CTA bilaterally. Non labored breathing. No rhonchi, wheezing, or crackles. Cardiovascular: RRR. No murmurs noted. No LE edema. Gastrointestinal (Abdomen): Nontender, +BS. No masses noted. Skin: No rashes or skin lesions noted. Neurologic: Sensation grossly intact. No FND appreciated. Psychiatric: Speech of normal pace and content. Mood and affect congruent. Discharge Data Allergies Allergy/AdvReac Type Severity Reaction Status Date / Time No Known Drug Allergies Allergy . Verified 01/06/24 01:04 Consultations 01/06/24 01:01 ED Decision to Admit Stat 01/06/24 04:02 Consult Psychiatry Routine 01/07/24 10:04 Consult Orthopedic Surgery Routine Hospital Course (1) Intentional overdose: (2) Tylenol ingestion: (3) Obesity (BMI 30-39.9): (4) Autism spectrum disorder: (5) ADHD: (6) Intellectual disability: (7) Mood disorder: (8) Intermittent explosive disorder: (9) Bradycardia: Aaron Whyte is an 17F w/ PMH Of ADHD, autism, multiple suicide attempts, obesity, explosive disorder, mood disorder, and intelectual disability who presented for intentional tylenol overdose of 40-50 tabs. #Intentional overdose: Plan: - Multiple prior attempts of overdose are noted - Intentional Tylenol overdose Acetaminophen level 267 on arrival, 439 @ 0230 , <3 on discharge Received NAC protocol per poison control recommendation 01/06 labs remain unremarkable - For agitation in the ER -Zyprexa worked well - 5 mg ODT PRN BID for agitation in ER, No further agitation after she arrived to floor - Transferred to Psych unit. - Stayed on 302 status. #Right 5th Metatarsal fracture - Seen by podiatry - Placed in Surgical shoe. Can weight bear. Outpatient f/u with podiatry. #Obesity (BMI 30-39.9): Plan: - Question of Metformin use outpatient, unconfirmed at home - Held during Tylenol toxicity period - Will resume her home medication #Autism spectrum disorder/ADHD/Intellectual disability/Mood disorder/Intermittent explosive disorder: Plan: - Management per inpatient psychiatry. Total Time Total Time Spent Total Time Spent (In Minutes): See attending's attestation Discharge Plan Discharge Items Patient Disposition: Transfer Behavioral Health Fac Reason For Visit: INTENTIONAL OD Discharge Diagnosis: Intentional Tylenol Overdose Activity: Resume your previous activity Non-emergency contact: Primary Care Provider Call non-emergency contact if: you have any medication questions Follow-up/Referrals: Diane Ugalde MD [Primary Care Provider] - Diet: Regular Addtl Attending Provider Instructions: Please follow up with your primary care provider after discharge from Psychiatric unit. Seen by podiatry for 5th Metatarsal fracture - Placed in surgical shoe and ok to be weight bearing. To have outpatient follow up with podiatry on discharge in 4- 6 weeks. Pending Studies at Discharge: No Stand-Alone Forms: [facility] Medications and DC Order Prescriptions: Continued lamotrigine [Lamictal] 25 mg tablet 150 mg PO QAM MDD 75 buspirone 10 mg tablet 10 mg PO TID clonazepam [Klonopin] 0.5 mg Tablet 0.5 mg PO BID sertraline [Zoloft] 50 mg Tablet 50 mg PO DAILY levonorgestrel-ethinyl estrad [Vienva] 0.1-20 mg-mcg Tablet 1 tab QPM buspirone 10 mg tablet 10 mg PO 3XD risperidone 0.5 mg tablet 0.5 mg PO 2XD Discharge Orders: Discharge Order (Routine); Ordered 01/07/24 Ordered By: Alis Parry Admission Data Admit Date/Time: 01/06/24 01:31 Attending Provider: Alis Parry Admit Provider: Nisa Reynolds Primary Care Provider: Diane Ugalde Other Providers: Zuri Urias; Carol Dominguez; Pro Barker; Tay Arango Jr; Racquel Calhoun; Guera Vega; Long Diallo Other Interventions: Discharge Summary Assessment (RN) Last Done: 01/07/24 09:05 Supervising Physician Co-Signing Physician Notes Attending Physician Supervision Note: I independently interviewed and examined the patient and verified the friedman history and physical, reviewed labs and image studies and agree with findings and care plan noted above. Resident Activity Tracking Resident Involvement: Resident Care Provided Care Provided: Adult Hospital Medicine
== END 2024-01-07 12:54 | DRG 918 ==
LOC: ED 22:35 → SUATTDRO 01-06 01:31 → INTOOBSV 01-06 01:31 → 2E 01-06 01:31